=== PATIENT | male | born 1960 | race Caucasian/White ===

== ENCOUNTER 2021-06-24 15:00 | Emergency (ER) | payer MEDICAID ==
--- NOTE | 2021-06-24 15:52 | EDM.PDOC ---
ED HPI GENERAL MEDICAL PROBLEM - General Chief Complaint: Respiratory Problem Stated Complaint: SOB Time Seen by Provider: 06/24/21 15:35 Source of Information: Reports: Patient History Limitations: Reports: No Limitations - History of Present Illness INITIAL COMMENTS - FREE TEXT/NARRATIVE: 60-year-old male is in with likely Covid symptoms for the past 5 days, is interested in the monoclonal antibody treatment but he would rather than get the vaccine. He has been short of breath, claims his O2 saturations at home have been "low", and he lost his smell and taste last week but that is improved. He is refusing to get any testicles of his nose, he is refusing to be hospitalized. Onset: Gradual Duration: Day(s): (Symptoms for 5 to 6 days) Associated Symptoms: Reports: Cough, Fever/Chills, Malaise, Shortness of Breath, Weakness - Related Data Allergies Allergy/AdvReac Type Severity Reaction Status Date / Time No Known Allergies Allergy Verified 06/24/21 15:25 Home Meds: Home Meds NK [No Known Home Meds] 06/24/21 [History] Social & Family History - Tobacco Use Tobacco Use Status *Q: Unknown Ever Used Tobacco - Recreational Drug Use Recreational Drug Use: No ED ROS GENERAL - Review of Systems Review Of Systems: See Below Constitutional: Reports: Fever, Chills, Malaise HEENT: Denies: Throat Pain Respiratory: Reports: Shortness of Breath, Cough. Denies: Sputum Cardiovascular: Denies: Chest Pain GI/Abdominal: Denies: Abdominal Pain, Nausea, Vomiting : Reports: No Symptoms Musculoskeletal: Reports: Muscle Pain (Generalized muscle aches) Skin: Denies: Rash Neurological: Reports: Dizziness, Weakness. Denies: Headache ED EXAM, GENERAL - Physical Exam Exam: See Below Exam Limited By: No Limitations General Appearance: Alert, No Apparent Distress, Other (Looks fatigued but in no distress) Head: Atraumatic Respiratory/Chest: No Respiratory Distress, Lungs Clear Cardiovascular: Regular Rate, Rhythm Extremities: Normal Inspection Neurological: Alert, Oriented Psychiatric: Normal Affect, Normal Mood Skin Exam: Warm, Dry Course - Vital Signs Last Recorded V/S: Last Vital Signs Temp 98.0 F 06/24/21 15:23 Pulse 103 H 06/24/21 15:23 Resp 16 06/24/21 15:23 BP 113/78 06/24/21 15:23 Pulse Ox 94 L 06/24/21 15:23 - Orders/Labs/Meds Orders: Active Orders 24 hr Category Date Time Status Isolation [COMM] Stat Oth 06/24/21 15:41 Ordered Labs: Laboratory Tests 06/24/21 Range/Units 15:53 SARS CoV-2 RNA Rapid NINA Positive H - Re-Assessments/Exams Free Text/Narrative Re-Assessment/Exam: 06/24/21 15:52 Originally ordered a 4 Plex viral study but he refused the test because it went in his nose. Rapid Covid test was obtained. 06/24/21 15:55 Patient decided to leave AMA before his test result came back. 06/24/21 16:17 Patient's test did return positive for COVID-19 but he was gone and we were unable to discuss treatment options Departure - Departure Time of Disposition: 16:04 Disposition: Against Medical Advice 07 Clinical Impression: COVID-19 - Discharge Information Referrals: PCP,None [Primary Care Provider] - Forms: ED Department Discharge Care Plan Goals: Patient tested positive for COVID-19 but left AMA prior to our ability to discuss treatment options. Sepsis Event Note (ED) - Focused Exam Vital Signs: Vital Signs Temp Pulse Resp BP Pulse Ox 06/24/21 15:23 98.0 F 103 H 16 113/78 94 L - My Orders Last 24 Hours: My Active Orders 06/24/21 15:41 Isolation [COMM] Stat - Assessment/Plan Last 24 Hours: My Active Orders 06/24/21 15:41 Isolation [COMM] Stat
== END 2021-06-24 16:00 | disposition left against medical advice (07) ==
LOC: JP.ED 15:00
DX: U07.1 COVID-19 (principal)
CPT/HCPCS: 99284; U0002

== ENCOUNTER 2023-10-20 07:50 | Day surgery (SDC) | payer MEDICAID ==
[2023-10-20] MEDS: Lactated Ringers 1,000 ML IV SCH (08:33)
[2023-10-20] MEDS ORDERED: fentaNYL 50 MCG/ML SDV ONE ×2 (09:40→10:24)
[2023-10-20] MEDS ORDERED: Propofol 200 MG/20 ML SDV ONE ×2 (09:40→10:34)
[2023-10-20] MEDS ORDERED: Midazolam 1 MG/ML 2 ML SDV ONE (09:40)
== END 2023-10-20 11:57 | disposition home or self-care (01) ==
LOC: JP.SDS 07:50
PROVIDERS: ATTEND Student in an Organized Health Care Education/Training Program
DX: Z12.11 Encounter for screening for malignant neoplasm of colon (principal); K63.5 Polyp of colon; K57.30 Diverticulosis of large intestine without perforation or abscess without bleeding
CPT/HCPCS: 45380; 88305; J2250; J2704; J3010; J7120